=== PATIENT | male | born 1945 | race Caucasian/White ===

== ENCOUNTER 2022-12-04 09:02 | Outpatient (CLI) | payer MEDICARE, MEDICAID ==
[~2022-12-04 09:02] MED LIST: ATOR80TA PO; CLOP75TA34 PO; FLUT1DIS20 INH; FOLI1TAB27 PO; LISI5TAB22 PO; MULT-25 PO; NORCO10T PO; RIVA2.5T PO; THIA50TA10 PO
== END 2022-12-04 23:59 | disposition home or self-care (01) ==
LOC: VAS 09:02
PROVIDERS: ATTEND Surgery
DX: I73.9 Peripheral vascular disease, unspecified (principal); Z98.890 Other specified postprocedural states
CPT/HCPCS: 93922; 93925

== ENCOUNTER 2023-01-10 12:43 | Outpatient (CLI) | payer MEDICARE, MEDICAID | END 2023-01-10 23:59 | disposition home or self-care (01) | LOC: VAS 12:43 | PROVIDERS: ATTEND Surgery | DX: I73.9 Peripheral vascular disease, unspecified (principal); M79.605 Pain in left leg; M79.604 Pain in right leg; R22.43 Localized swelling, mass and lump, lower limb, bilateral | CPT/HCPCS: 93922; 93925; 93970 ==